=== PATIENT | female | born 1995 | race Caucasian/White ===

== ENCOUNTER 2017-03-11 14:13 | Emergency (ER) | payer BC, OTHER ==
[2017-03-11 14:37] VITALS: BP 121/81
--- NOTE | 2017-03-11 15:06 | UC ---
Respiratory Complaint HPI - HPI Summary HPI Summary: pt is concerned about possible TB exposure. Pt reports that her boss's girlfriend tested positive for TB. Pt reports that rodríguez has been coughing at work. Pt reports that she has begun coughing but has not been taking allergy and asthma medications. - History of Current Complaint Chief Complaint: UCRespiratory Stated Complaint: COUGH, TB EXPOSURE Time Seen by Provider: 03/11/17 14:54 Hx Obtained From: Patient Hx Last Menstrual Period: 02/17/17 ?: No Onset/Duration: Gradual Onset, Lasting Days Timing: Intermittent Episodes Severity Initially: Mild Severity Currently: Mild Character: Cough: Nonproductive Alleviating Factors: Spontaneous Resolution Associated Signs And Symptoms: Positive: Chills - once - Risk Factors Pulmonary Embolism Risk Factors: Negative Cardiac Risk Factors: Negative Pseudomonas Risk Factors: Negative Tuberculosis Risk Factors: Negative - Allergies/Home Medications Allergies/Adverse Reactions: Allergies Allergy/AdvReac Type Severity Reaction Status Date / Time seasonal Allergy Coughing Uncoded 03/11/17 14:38 Home Medications: Home Medications NK [No Home Medications Reported] 03/11/17 [History Confirmed 03/11/17] PMH/Surg Hx/FS Hx/Imm Hx Previously Healthy: Yes - Surgical History Surgical History: None - Family History Known Family History: Positive: Other - negative for TB - Social History Alcohol Use: Occasionally Substance Use Type: None Smoking Status (MU): Never Smoked Tobacco Review of Systems Constitutional: Negative Skin: Negative Eyes: Negative ENT: Negative Respiratory: Cough Cardiovascular: Negative Gastrointestinal: Negative Genitourinary: Negative Motor: Negative Neurovascular: Negative Musculoskeletal: Negative Neurological: Negative Psychological: Negative All Other Systems Reviewed And Are Negative: Yes Physical Exam Triage Information Reviewed: Yes Appearance: Well-Appearing Vital Signs: Initial Vital Signs Temp 99 F 03/11/17 14:31 Pulse 90 03/11/17 14:31 Resp 16 03/11/17 14:31 BP 121/81 03/11/17 14:31 Pulse Ox 99 03/11/17 14:31 Eye Exam: Normal Neck exam: Normal Respiratory Exam: Normal Cardiovascular Exam: Normal Musculoskeletal Exam: Normal Neurological Exam: Normal Psychological Exam: Normal Skin Exam: Normal UC Diagnostic Evaluation - Laboratory O2 Sat by Pulse Oximetry: 99 Respiratory Course/Dx - Course Course Of Treatment: Pt was instructed to RTC in 48-72 hours for follow up with PPD test. Pt verbalized understanding and agreed to plan of care. - Differential Dx/Diagnosis Provider Diagnoses: possible TB exposure. URI. Allergies. Asthma exacerbation Discharge - Discharge Plan Condition: Stable Disposition: HOME Patient Education Materials: Acute Cough (ED) Referrals: Patricia LOCKHART,Anastasiya [Primary Care Provider] - 1 Day Additional Instructions: Please return to clinic in 48-72 hours for reading of PPD test.
[2017-03-11] MEDS ORDERED: PPD test dose* 5 TU/0.1 ML TEST (*USE PPD ORDER SET*) ONE (15:11)
== END 2017-03-11 15:30 | disposition home or self-care (01) ==
LOC: UCCORT 14:13
DX: J06.9 Acute upper respiratory infection, unspecified (principal); J45.901 Unspecified asthma with (acute) exacerbation
CPT/HCPCS: 96372; 99211; G0463